=== PATIENT | male | born 1975 | race Caucasian/White ===

== ENCOUNTER 2018-10-02 08:01 | Emergency (ER) | payer BC ==
--- NOTE | 2018-10-02 08:14 | EDM.PDOC ---
ED HPI GENERAL MEDICAL PROBLEM - General Chief Complaint: Upper Extremity Injury/Pain Stated Complaint: POSSIBLE BROKEN RIGHT WRIST AND BRUISED RIGHT EYE Time Seen by Provider: 10/02/18 08:12 Source of Information: Reports: Patient - History of Present Illness INITIAL COMMENTS - FREE TEXT/NARRATIVE: HISTORY AND PHYSICAL: History of present illness: [A shunt presents post fall, he states that he tripped over his dog this morning landing on outstretched hand complains of right wrist pain 5 out of 10 nonradiating as well as right raccoon 9 noted no fever nausea vomiting chills sweats no chest pain shortness breath headache dizziness palpitation about a urine symptoms no loss of consciousness ] Review of systems: As per history of present illness and below otherwise all systems reviewed and negative. Past medical history: As per history of present illness and as reviewed below otherwise noncontributory. Surgical history: As per history of present illness and as reviewed below otherwise noncontributory. Social history: No reported history of drug or alcohol abuse. Family history: As per history of present illness and as reviewed below otherwise noncontributory. Physical exam: HEENT: Atraumatic, normocephalic, pupils reactive, negative for conjunctival pallor or scleral icterus, mucous membranes moist, throat clear, neck supple, nontender, trachea midline. Lungs: Clear to auscultation, breath sounds equal bilaterally, chest nontender. Heart: S1S2, regular, negative for clicks, rubs, or JVD. Abdomen: Soft, nondistended, nontender. Negative for masses or hepatosplenomegaly. Negative for costovertebral tenderness. Pelvis: Stable nontender. Genitourinary: Deferred. Rectal: Deferred. Extremities: Atraumatic, negative for cords or calf pain. Neurovascular unremarkable. Right upper extremity shoulder and elbow on affected no pain with head movement tender over the distal radius and carpals no snuffbox tenderness entire limb is neurovascularly intact no open lesion bruising or swelling Neuro: Awake, alert, oriented. Cranial nerves II through XII unremarkable. Cerebellum unremarkable. Motor and sensory unremarkable throughout. Exam nonfocal. Diagnostics: [Right wrist 3 views I offered imaging of the head and facial bones however pt refused] Therapeutics: [Thumb spica splint Rest ice ibuprofen ] Impression: [Right raccoon eye Right wrist pain/injury] Definitive disposition and diagnosis as appropriate pending reevaluation and review of above. Right Wrist Pain Score (Numeric/FACES): 8 - Related Data Allergies Allergy/AdvReac Type Severity Reaction Status Date / Time Penicillins Allergy Hives Verified 10/02/18 08:18 Home Meds: Home Meds . [No Known Home Meds] 10/02/18 [History] Review of Systems - Review of Systems Review Of Systems: See Below ED EXAM, GENERAL - Physical Exam Exam: See Below Course - Vital Signs Last Recorded V/S: Last Vital Signs Temp 97.7 F 10/02/18 08:14 Pulse 96 10/02/18 08:14 Resp 18 10/02/18 08:14 BP 165/116 H 10/02/18 08:14 Pulse Ox 95 10/02/18 08:14 - Orders/Labs/Meds Orders: Active Orders 24 hr Category Date Time Status Wrist Comp Min 3V Rt [CR] Stat Exams 10/02/18 08:12 Taken Departure - Departure Time of Disposition: 09:12 Disposition: Home, Self-Care 01 Condition: Good Clinical Impression: Right wrist injury - Discharge Information Referrals: PCP,None [Primary Care Provider] - Forms: ED Department Discharge Additional Instructions: Splint for comfort Rest Ice 20 minute intervals 3 times daily as needed Ibuprofen 400 mg 3 times daily 7-10 days Follow-up with primary care or orthopedist in 2 weeks sooner as needed [facility] - Primary Care [address] [place] [address] [facility] Professional [address], [address] [place] [address] my orthopedic The following information is given to patients seen in the emergency department who are being discharged to home. This information is to outline your options for follow-up care. We provide all patients seen in our emergency department with a follow-up referral. The need for follow-up, as well as the timing and circumstances, are variable depending upon the specifics of your emergency department visit. If you don't have a primary care physician on staff, we will provide you with a referral. We always advise you to contact your personal physician following an emergency department visit to inform them of the circumstance of the visit and for follow-up with them and/or the need for any referrals to a consulting specialist. The emergency department will also refer you to a specialist when appropriate. This referral assures that you have the opportunity for follow-up care with a specialist. All of these measure are taken in an effort to provide you with optimal care, which includes your follow-up. Under all circumstances we always encourage you to contact your private physician who remains a resource for coordinating your care. When calling for follow-up care, please make the office aware that this follow-up is from your recent emergency room visit. If for any reason you are refused follow-up, please contact the [facility] emergency department at and asked to speak to the emergency department charge nurse. - My Orders Last 24 Hours: My Active Orders 10/02/18 08:12 Wrist Comp Min 3V Rt [CR] Stat - Assessment/Plan Last 24 Hours: My Active Orders 10/02/18 08:12 Wrist Comp Min 3V Rt [CR] Stat
--- NOTE | 2018-10-02 09:12 | CR ---
INDICATION: Pt w/rt wrist pain after falling today. INDICATION: Pain after fall. TECHNIQUE: Right wrist, three views. COMPARISON: None FINDINGS: Bones: Alignment is normal. No fractures or bone lesions. Joint spaces: Unremarkable. Soft tissues: Calcifications present along the dorsal aspect of the right wrist are incidental. No soft tissue swelling. IMPRESSION: 1. There is no fracture identified at the right wrist. 2. The proximal/distal rows of the carpus are intact. 3. There is no lunate or perilunate dislocation identified on the lateral projection. Dictated by Uri Downs MD @ 10/02/2018 9:09:57 AM Dictated by: Uri Downs MD @ 10/02/2018 09:10:01 (Electronically Signed)
== END 2018-10-02 09:20 | disposition home or self-care (01) ==
LOC: MW.ED 08:01
DX: S69.91XA Unspecified injury of right wrist, hand and finger(s), initial encounter (principal); S05.11XA Contusion of eyeball and orbital tissues, right eye, initial encounter; Z88.0 Allergy status to penicillin; W19.XXXA Unspecified fall, initial encounter
CPT/HCPCS: 73110-26-RT; 73110-RT; 99283; 99283-25